=== PATIENT | male | born 1995 | race Caucasian/White ===

== ENCOUNTER 2024-07-08 13:09 | Emergency (ER) | payer MEDICAID, SELFPAY ==
[2024-07-08 13:28] VITALS: BP 125/74; PULSE 99; RESP 18; TEMP 38.1; O2SAT 96; BMI 22.3
--- NOTE | 2024-07-08 16:13 | ED.LOWEXIN ---
HPI - Extremity Injury (Lower) General Time Seen by Provider: 16:13 Date Seen: 07/08/24 Chief Complaint: Extremity Pain/Injury, Lower Stated Complaint: R leg injury Time Seen by Provider: 07/08/24 16:12 Source: patient and RN notes reviewed History of Present Illness HPI Narrative: This 28-year-old male is coming into the ER with complaint of right posterior ankle pain along the Achilles tendon. He wonders if he ruptured his Achilles tendon. He either got stepped on or kicked in the back of his right leg at a soccer game yesterday about 5:00 p.m.. Immediately after this happen when he attempted to stand, could not put weight on this leg and his still not been able to. He has been icing overnight, he has tried Excedrin. He woke up from a nap and still could not bear any weight. He is noting bruising down by the Achilles tendon. Denies any numbness tingling. He is feeling pain stemming from the Achilles tendon that radiates up towards his knee. It is on the backside of the leg. Related Data Home Medications ?Medication ?Instructions ?Recorded ?Confirmed No Known Home Medications 07/08/24 07/08/24 Allergies Allergy/AdvReac Type Severity Reaction Status Date / Time No Known Drug Allergies Allergy Verified 07/08/24 13:34 Review of Systems Status of ROS: Reports: 6 or more systems reviewed and unremarkable except as noted in History and below [facility] Social History Smoking Status: Never smoker How often do you have a drink containing alcohol: never AUDIT-C Alcohol total score: 0 Non-prescribed substance use: denies use service: No Exam Const: Vital Signs, click to edit/add: Vital Signs - 24 hr 07/08/24 13:28 07/08/24 16:28 Temperature 100.5 F H 98 F Pulse Rate [Right Pulse Oximeter] 99 Respiratory Rate 18 Blood Pressure [Ri ght Upper Arm] 125/74 Pulse Oximetry 96 Oxygen Delivery Me thod Room Air Patient is wearing a stocking cap and thick clothing, recheck of his oral temperature shows 98. He notes he is not feeling sick at all. He is alert, interactive, no apparent distress. You can see bruising and swelling along the posterior ankle, more so medially than laterally. Is tender over the Achilles and it certainly feels less defined just beyond the insertion of the Achilles tendon. He is quite tender. He does not have a normal Maza test on this leg. Gastrocnemius muscles palpate intact and nontender but moving down over the course of the Achilles, he is tender, the course architecture of the Achilles tendon is lost. He has preserved dorsiflexion and plantar flexion strength testing. Can mobilize his toes, pulses lower good, distal sensation of his toes normal. Documenting provider has reviewed patient's vital signs: yes Course Course ED Course: Will talk to Orthopedics regarding this patient. Consultations Consultation #1: Spoke with Tommy Nova from orthopedics. Will see if environmental maintenance worker can do MSK. If not, will place patient in posterior splint with toes down and have him follow up outpatient with Orthopedics. Did confirm with current environmental maintenance worker that she does not do MSK. Time: 16:59 Vital Signs Vital signs: Initial Vital Signs Temperature 100.5 F H 07/08/24 13:28 Temperature Source Temporal Artery Scan 07/08/24 13:28 Pulse Rate 99 07/08/24 13:28 Pulse Rhythm Regular 07/08/24 13:28 Respiratory Rate 18 07/08/24 13:28 Blood Pressure 125/74 07/08/24 13:28 Blood Pressure Mean 91 07/08/24 13:28 Blood Pressure Position Sitting 07/08/24 13:28 Pulse Oximetry 96 07/08/24 13:28 Oxygen Delivery Method Room Air 07/08/24 13:28 Vital Signs Temperature 100.5 F H 07/08/24 13:28 Pulse Rate 99 07/08/24 13:28 Respiratory Rate 18 07/08/24 13:28 Blood Pressure 125/74 07/08/24 13:28 Pulse Oximetry 96 07/08/24 13:28 Oxygen Delivery Method Room Air 07/08/24 13:28 Temperature 98 F 07/08/24 16:28 Pulse Rate 99 07/08/24 13:28 Respiratory Rate 18 07/08/24 13:28 Blood Pressure 125/74 07/08/24 13:28 Pulse Oximetry 96 07/08/24 13:28 Oxygen Delivery Method Room Air 07/08/24 13:28 Discharge Plan Discharge Clinical Impression: Injury of right Achilles tendon Qualifiers: Encounter type: initial encounter Qualified Code(s): S86.001A - Unspecified injury of right Achilles tendon, initial encounter Patient Disposition: Home, Self-Care Condition: Stable Instructions: Achilles Tendon Rupture (ED) Additional Instructions: Leave splint on, use crutches for nonweightbearing. Elevate this leg as much as you are able to, can ice along the sides. Need to contact the orthopedic clinic tomorrow to get scheduled for a follow-up. The phone number is [phone]. Recommend Tylenol 1000 mg 3 times a day baseline for pain. Can supplement with ibuprofen per bottle directions as needed for further pain management. Prescriptions: No Action No Known Home Medications Follow Up/Referrals: Provider,Not a Local [Primary Care Provider] - Stand Alone Forms: [facility] Info Instructions Procedures Orthopedic Splinting/Casting Injury #1: Side: right Lower Extremity Injury Location: lower leg Lower extremity immobilizer: short leg (With plantar flexion done to patient tolerability.) Applied by clinician: MD/DO Other Orthopedic Equipment: crutches Conclusion: patient tolerated procedure
[2024-07-08 16:28] VITALS: TEMP 36.6
== END 2024-07-08 17:35 | disposition home or self-care (01) ==
LOC: ED 17:29
PROVIDERS: Emergency Provider Family Medicine
DX: S86.001A Unspecified injury of right Achilles tendon, initial encounter (principal); Y93.66 Activity, soccer
CPT/HCPCS: 29515; 87631; 99283

== ENCOUNTER 2024-07-13 08:00 | Day surgery (SDC) | payer MEDICAID, SELFPAY ==
[2024-07-13] VITALS (15 sets, daily range): BP systolic 106–133; BP diastolic 60–91; PULSE 52–88; RESP 14–18; TEMP 36.2–37.3; O2SAT 98–100; BMI 22.3
[2024-07-13] MEDS: 0.9 % SODIUM CHLORIDE 500 ML 500 ML 100 ML IV (08:59)
--- NOTE | 2024-07-13 09:01 | W.PM.H&PU ---
History & Physical Update History & Physical Update H&P Reviewed and patient assessed: No changes noted
--- NOTE | 2024-07-13 09:01 | PM.ORPRC ---
Procedure Note Date of procedure: 07/13/24 Procedure: PREOPERATIVE DIAGNOSIS: 1. Right Achilles tendon rupture 2. Right ankle soft tissue mass POSTOPERATIVE DIAGNOSIS: 1. Right Achilles tendon rupture 2. Right ankle soft tissue mass PROCEDURE: 1. Open right Achilles tendon repair 2. Right ankle soft tissue mass incisional biopsy SURGEON: Guillermo uHmmel MD. KNITTING MACHINE MECHANIC: Johana Abraham P.A.-C. - An licensed occupational therapy assistant was critical for this case to aid in patient positioning, tissue retraction, limb manipulation/positioning, and closure. ANESTHESIA: Spinal anesthesia TOURNIQUET: 61 minutes at 250 mm Hg ESTIMATED BLOOD LOSS: 5 mL COMPLICATIONS: None evident SPECIMENS: Incisional biopsies of anterolateral ankle subcutaneous soft tissue mass x2, each of which measured approximately 0.5 cm in diameter. INDICATIONS: The patient is a pleasant 28-year-old male who sustained an acute right Achilles tendon rupture while playing soccer approximately 6 days prior to surgery. MRI confirmed complete rupture of the Achilles tendon approximately 6-7 cm proximal to the calcaneus insertion with 1 cm of gapping. Recommendation was subsequently made for surgical intervention consisting of Achilles tendon repair to allow for improved healing, plantar flexion strength, and reduce risk of re-rupture. MRI also identified a 3.3 x 2.5 x 2.7 cm subcutaneous soft tissue mass in the anterior ankle superficial to the anterior talofibular ligament. Patient states that mass has been present for approximately 12 years and developed after an ankle injury. Mass has not changed in size and has not been causing him any discomfort. He was previously told that mass was an unresolved hematoma, but he never had any formal diagnosis of the mass. Therefore, recommendation was made for incisional biopsy for pathology evaluation. FINDINGS: Complete rupture of the Achilles tendon approximately 6 cm proximal to the Achilles tendon insertion on the calcaneus. There was gapping of the tendon which measured approximately 1 cm. Palpable subcutaneous soft tissue mass anterior lateral ankle located anterior and medial to the distal fibula. Overlying skin was intact. No warmth erythema. DESCRIPTION OF PROCEDURE: Following a thorough discussion of risks, benefits, and alternatives to surgery, informed consent was obtained and the operative site was marked. The patient was then brought to the operating room and spinal anesthesia was administered. Patient was then placed into the prone position. All bony prominences were well padded. He was given Ancef IV preoperatively for prophylaxis. A tourniquet was placed on patient's operative thigh, and operative lower extremity was prepped and draped in usual sterile fashion. A surgical time-out was performed confirming patient identity, surgical site, and surgical procedure. The right foot lower extremity were elevated exsanguinated with Esmarch, and tourniquet was inflated to 250 mmHg. Attention was 1st directed to the Achilles tendon repair. A longitudinal incision measuring approximately 8 cm in length was made along the medial border of the Achilles tendon centered over the tendon rupture site. Incision was carried through the subcutaneous tissues creating full-thickness flaps. The paratenon surrounding the Achilles tendon was then bluntly dissected away from the subcutaneous tissues. A midline longitudinal incision was then made through the paratenon. Ruptured Achilles tendon was readily identified. Limited debridement of the tendon ends was performed, and the tendon was thoroughly irrigated and cleared of hematoma. A FiberTape suture was then placed through the proximal tendon in a Krackow fashion running retrograde along the medial side and then antegrade along the lateral border of the proximal tendon. A 2nd FiberTape suture was then placed in a Krackow fashion in a similar fashion through the distal aspect of the tendon. A Elvis needle was then used to place suture limbs from the proximal tendon into the distal tendon, and suture limbs from the distal tendon into the proximal tendon. The foot was then plantar flexed, tendon ends were reapproximated, and FiberTape sutures were tied. Tendon rupture site was then over run with a running epitendinous 3-0 Prolene suture. Wound was again irrigated with normal saline. The paratenon was then closed with a running 3-0 Vicryl suture. Attention was then directed to the incisional biopsy. A 1 cm incision was made through the skin overlying the anterior lateral ankle soft tissue mass. Blunt dissection was used to dissect through subcutaneous tissues. Soft tissue mass was readily identified. Two intralesional specimens were sharply excised. Each specimen measured approximately 0.5 cm in diameter. Segments were to pathology for evaluation. Tourniquet was released. Hemostasis was achieved with electrocautery. Posterior skin incision was closed with 2-0 Vicryl inverted interrupted subcutaneous stitches followed by running 2-0 Stratafix stitch and Dermabond glue. Incisional biopsy incision was closed with 3-0 nylon simple interrupted sutures. Sterile dressings were applied followed by application of a well-padded, short-leg posterior splint with the foot in approximately 30? of plantar flexion. Patient was then rotated into the supine position awoken from anesthesia and transferred to the recovery room in stable condition. PLAN: 1. Nonweightbearing left lower extremity 2. Aspirin 81 mg p.o. daily for 4 weeks for DVT prophylaxis 3. Ice and elevation to help control pain and swelling 4. Tylenol and oxycodone and as needed basis for pain control 5. Follow-up in 10-14 days for wound check and conversion to cam boot with heel lifts 6. Will initiate formal physical therapy in 2 weeks per the Achilles tendon repair protocol.
[2024-07-13] MEDS: CEFAZOLIN 2 GM INJ IVP (09:23)
[2024-07-13] MEDS: LACTATED RINGERS 500 ML 500 ML 75 ML IV (09:28)
[2024-07-13] MEDS: BUPIVACAINE 0.25% 30 ML INJECTION (10:53)
[2024-07-13] MEDS: BACITRACIN OINTMENT BULK TUBE 1 APPLIC TOPICAL (10:54)
--- NOTE | 2024-07-13 11:22 | W.ANESCHARGE ---
Anesthesia Charges Start Date/Time Anesthesia Start Date: 07/13/24 Anesthesia Start Time: 08:58 Stop Date/Time Anesthesia Stop Date: 07/13/24 Anesthesia Stop Time: 11:17
[2024-07-13] MEDS: OxyCODONE/APAP 5-325 TABLET PO (14:07)
--- NOTE | 2024-07-13 14:32 | SUR.PHASEII ---
pt ambulated to bathroom with walker and SBA. TOlerated activity without difficulty. Pt voided. Pt states i'm starting to feel my legs again. Pain medication given prophylactically. Tolerated toast and juice. Wheelchair out to car with significant other.
--- NOTE | 2024-07-13 14:34 | SUR.PHASEII ---
reviewed d/c instructions with pt and family. All questions answered.
== END 2024-07-13 14:35 | disposition home or self-care (01) ==
PROVIDERS: Visit Provider Orthopaedic Surgery
PROC: (CPT 27650; principal; 2024-07-13 09:15)
DX: S86.011A Strain of right Achilles tendon, initial encounter (principal); R22.41 Localized swelling, mass and lump, right lower limb; D48.19 Other specified neoplasm of uncertain behavior of connective and other soft tissue
CPT/HCPCS: 27650; 27632; 01472; 88307; 88341; 88342; A9270; J0665; J0690; J1885; J2250; J2371; J2704; J3010; J3490; J7030; J7120

== ENCOUNTER 2024-10-11 13:45 | Outpatient (RCR) | payer MEDICAID, SELFPAY ==
--- NOTE | 2024-08-02 15:32 | PT.OPE ---
PT True Outpatient Eval PT [facility] Outpatient Eval Start: 07/26/24 17:37 Freq: Status: Active Protocol: Document 07/26/24 17:38 BMS (Rec: 07/26/24 17:38 BMS [id number]) E-signed By Michelle Rosario PT Physical Therapy Outpatient Evaluation Insurance Information Recert Due Date 10/23/24 Insurance Name Medicaid,are Provider Fax Number internal Medical Diagnosis [id number] specified postprocedural states s/p R achilles tendon repair . therapy to start 2 weeks post op Treating Diagnosis R leg pain M79.661 abnormal gait R26.89 achilles tendon S86.001A Referring MD Matthew Dahl MD NIP [phone] Subjective Preferred Name Rajiv Means 07/07/24 was playing soccer, was kicked from behind, went down. Didnt know what happened until I got up and tried to walk. severe pain. hobbled off field, went to ED next day. Did surgery 07/13/24, was in fiber brace, they took that off and put me in this (long leg CAM with heel lift), I wear it all the time except to shower. Went in and they checked it, go back in a month . is itchy, and it really hurts where the boot rubs on the incision and heel like where my heel pokes out. significant other is here, she is expecting baby girl in few weeks. did have incident where I was out of boot was getting out of 1st brace and felt severe pain, felt tendon move. Home environment: 2 steps in, then living in basement, all needs there but do go up/down steps. has been really hard. have a shower chair, am washing it with antibiotic soap. pain managed with oxycodone, elevation aspirin, rest and tylenol Pain Comments -01/17 Date of Surgery (If applicable) 07/13/24 Current Work Status Unemployed Occupation was working in [employer] x 2 mos, was terminated after injury Precautions Treatment Precautions/Contraindications s/p R Achilles repair 07/13/24, also R ankle soft tissue mass incisional biopsy. NWB until 6 weeks postop - using B axillary crutches last provider note states therapy per protocol - requested preferred protocol from provider, otherwise do have protocol from outside facility Weight Bearing Status Non-Weight Bearing Objective Range of Motion toes, knee, hip appear WNL ankle not assessed due to recent surgery. out of boot resting position is: inv 20, PF 45 Strength not assessed in foot or knee due to bijoint crossing of mm able to perform sit up from supine without use of hands and also SLR without extension lag Swelling circumference malleoli 26.0cm 12 cm below inferior pole of patella 39.0cm MTP circumference 24.0 Palpation mod tender around achilles, lateral malleolus and anterior walker Balance & Gait NWB in long CAM boot with B axillary crutches. Stair technique was putting 1 crutch 1 steps up, other crutch 2 steps up and hopping up with nonsurgical LE. This was reinstructed with proper technique. Posture head forward, slumped able to correct. appropriately protective of surgical LE Sensation/Reflexes sensation intact to light touch dermatomes L4-S1 not assessed due to recent surgery. good capillary refill , toes warm and color is appropriate Other/Pertinent Objective - area of maceration and open skin between digits 4 and 5 right foot. did clean this with rubbing alcohol and place non-stick gauze between to dry out. - open abraded area on heel distal to incision where CAM rubs - did clean and cover with silicone scar pad to protect raw area (not on incision). - 7.5cm incision closed with glue. small incision lateral for mass biopsy closed with nylon stitch. both are clean and dry. Assessment Assessment/Impression Patient is very pleasant 28 yo male accompanied by his significant other, referred s/ p RIGHT Achilles repair DOS 07/13/24. He was injured playing soccer on 07/07/24, was struck from behind, went to ground. When he got back up could not walk. Sought intervention next day. Had achilles repair as well as incisional biopsy of mass on lateral R foot. Presents today 2 weeks postop in long leg CAM boot on B axillary crutches. He c/o pain where boot rubs heel, which is raw. Pain from surgery is minimal but is taking oxycodone and elevating. Incision is 7.5cm, both incisions clean, dry and closed with glue and stitch on biopsy site. ROM and strength testing deferred due to recent surgery. Last provider note indicates therapy per protocol, did fax request for this protocol. He demo good core and SLR control this date . States he had an incident the day he got out of the 1st brace/cast where he had a bad pain and felt the tendon move. He is unable to give more information. Patient and significant other who is expecting baby in a few weeks live in basement with full flight stairs and rail on left ascending/right descending. Instructed in gait and stairs strategy in more safe manner, instructed in NWB and boot wear all but for shower, in use and car of silicone pad to reduce friction on posterior LE/heel, and issued piece of foam for added protection if needed. Patient expressed significant relief with silicone pad barrier. Patient instructed to keep macerated area btwn digits 4 and 5 on right foot. clean and dry and inspect to make sure no infection. did instruct in signs of infection and reasons to return to ED or call provider including but not limited to: streaking, feverish redness, increased swelling significant pain, any concern for reinjury. Did not issue compression as edema is not currently substational and boot will offer compression as well. Patient is appropriate for skilled physical therapy for tissue mobiliity, pain management, edema management, gait/stair training and as appropriate for phase of healiing will include ROM and strength, gait and balance when able to advance to WB status. Patient verbalizes understanding. Plan of Care Rehabilitation Potential Good Rehabilitation Potential Comments motivated Physical Therapy Goals - Pt demonstrate independent HEP and self care/home management techniques for pain management, strength, flexibility and balance. - Patient demo appropriate gait pattern with most appropriate gait and NWB, advance as appropriate per protocol and phase of healing. - Pt demonstrate AROM WNL as a component of correcting faulty gait patterns. - Pt demonstrate gait pattern without limp, substitution and with equal stride length and pushoff with decreased pain when able by protocol - Pt will demonstrate ability to stand and walk with pain < 2/10 in home without shoes for ADL/IADL. - Patient to demonstrate ability to ambulate safely on uneven ground with no or least restrictive gait aid. - Patient to demo ability to safely and confidently negotiate curb with no or least restrictive gait aid. Coordination/Communication With Referral Source Treatment Plan/Direct Interventions Electrical Stimulation,Gait Training,Ice/Cold/ Vasopneumatic,Manual Therapy, Neuromuscular Re-ed,Self-Care/ Home Management,Therapeutic Activities,Therapeutic Exercises Frequency/Duration 1-2x/ week x 12 weeks, adapt plan prn Patient Will Be Discharged From Therapy Completion of LTG(s),Skills Plateau,Independent w/HEP, Independently Progressing Evaluation Billing Untimed Code Treatment Minutes 25 Complexity Low Certification Information Initial Certification Date 07/26/24 Ending Certification Date 10/23/24 Provider Signature Required Yes Provider Signature Shows Agreement With POC & Medical Necessity Physician NPI Number Write NPI# Here Physician Comment/Change : Physician Signature & Date Requested Please Sign/Date Here
--- NOTE | 2024-10-11 14:55 | PT.OPDN ---
PT [place] [facility] Daily Note PT [facility] Daily Note Start: 07/26/24 17:37 Freq: Status: Active Protocol: Document 10/11/24 12:58 CJT (Rec: 10/11/24 14:54 CJT [email or web address]) E-signed By Barney Wade, PT PT OP Daily Progress Note Visit Information Note Type Recert/Progress Note Visit Number 11 Insurance Authorized Visits NO PA REQ'D NO VISIT LIMIT ONLINE Insurance Information Recert Due Date 01/09/25 Insurance Name Medicaid,are Medical Diagnosis [id number] specified postprocedural states s/p R achilles tendon repair . therapy to start 2 weeks post op Treating Diagnosis R leg pain M79.661 abnormal gait R26.89 achilles tendon S86.001A Referring MD Matthew Dahl MD [facility] [phone] Subjective Preferred Name Rajiv Clary Pt doing well. Some soreness and fatigue after being on his feet for about 1-1.5 hours. Still having some pain on the bottom of his L heel. Date of Surgery (If applicable) 07/13/24 Home Exercise Home Exercise Comments Access Code: [email or web address] URL: [email or web address] Date: 08/17/2024 Prepared by: Barney Wade Exercises - Supine Active Straight Leg Raise - 1-3 x daily - 5-7 x weekly - 1-3 sets - 10-20 reps - strength: 5-10 sec hold - Sidelying Hip Abduction - 1 -3 x daily - 5-7 x weekly - 1- 3 sets - 10-20 reps - strength : 5-10 sec hold - stretches: hold 30-60 sec stretch - Supine Short Arc Quad - 1-3 x daily - 5-7 x weekly - 1-3 sets - 10-20 reps - strength: 5-10 sec hold - Seated Toe Curl - 1-3 x daily - 7 x weekly - 1-3 sets - 10-20 reps - Supine Ankle Circles ( Mirrored) - 1-3 x daily - 7 x weekly - 1-3 sets - 10-20 reps - Supine Single Leg Ankle Pumps - 1 x daily - 7 x weekly - 3 sets - 10-20 reps Objective Other/Pertinent Objective R ankle DF: 20 (knee flexed), 13 (knee extended) R ankle PF: 55 degrees R ankle IV: 24 R ankle EV: 12 Patient Instructed in Risks/Benefits Yes Therapeutic Exercise Therapeutic Exercise Minutes (minutes) 35 Therapeutic Exercise: To Restore Elliptical - 5 minutes, ramp Functional Status and resistance level 0 Short sitting ankle DF isometrics, 2 x 10, 5 hold Seated heel raises x 20 Seated heel raises with KB on knee, 15# 2 x 15 Ankle PF/DF on rocker board 2 x 20 Heel raises with UE support 2 x 10 Manual Therapy Techniques Manual Therapy Minutes (minutes) 5 Manual Therapy Techniques STM to R tibialis posterior, gastroc and soleus to reduce tissue tension and improve extensibility. Gait & Stair Training Gait Training/Stairs Minutes (minutes) 4 Gait & Stair Training Comments Ambulation with VC for heel strike at initial contact, increasing gait speed and reciprocal arm swing. Self Care Management Training Self-Care Activity Minutes (minutes) 2 Self Care Management Training Figure-8 taping to thicken calcaneal fat pad Treatment Minutes Timed Code Treatment Minutes 46 Total Treatment Time 46 Billing Units Therapeutic Exercise Units 3 Assessment/Impression Assessment/Impression Rajiv has progressed very well during his time in therapy thus far. he has progressed to walking without an AD in his own shoes. He does occasionally have some pain with standing and walking , however, this occurs after about 1.5 hours of activity. Pts tone in R gastroc is quite low and his strength is poor, however, this is expected at this time. Ankle DF strength is full and pain free. Pts gait is slowly improving and his mechanics are near normal today. I have no concerns for Rajiv at this time. Recommend continued PT services to address deficits and return pt to highest level of function. Primary Functional Limitations Walking, running Plan of Care Physical Therapy Goals - Pt demonstrate independent HEP and self care/home management techniques for pain management, strength, flexibility and balance. MET - Patient demo appropriate gait pattern with most appropriate gait and NWB, advance as appropriate per protocol and phase of healing. MET - Pt demonstrate AROM WNL as a component of correcting faulty gait patterns. - Pt demonstrate gait pattern without limp, substitution and with equal stride length and pushoff with decreased pain when able by protocol - Pt will demonstrate ability to stand and walk with pain < 2/10 in home without shoes for ADL/IADL. - Patient to demonstrate ability to ambulate safely on uneven ground with no or least restrictive gait aid. - Patient to demo ability to safely and confidently negotiate curb with no or least restrictive gait aid. Daily Plan of Care Continue per POC Recertification Information Initial Certification Date 07/26/24 Recertification Start Date 10/11/24 Recertification Due Date 01/09/25 Reasons to Continue Skilled Therapy Skilled PT services are medically necessary to assist pt in restoring full strength in R ankle and ROM, improving gait mechanics to best allow pt to return to sport and play soccer with his friends. Rehabilitation Potential Excellent Continued Plan of Care and Interventions Ther-Ex, Ther-Act, gait training, STM as needed, neuro -re-ed Provider Signature Shows Agreement With POC & Medical Necessity Physician Comment/Change Comment or Changes Physician NPI Number #
== END 2025-01-22 13:56 | disposition home or self-care (01) ==
PROVIDERS: Visit Provider Orthopaedic Surgery
DX: Z48.89 Encounter for other specified surgical aftercare (principal); M79.661 Pain in right lower leg; Z51.89 Encounter for other specified aftercare
CPT/HCPCS: 97110; 97116; 97140; 97161